=== PATIENT | female | born 1945 | race African-American/Black ===

== ENCOUNTER → 2016-03-11 13:10 | Outpatient (CLI) | payer MEDICARE ==
[2016-02-03 18:19] VITALS: BMI 25.5
[~2016-03-11 13:10] MED LIST: AMOX TR-K CLV 21 TAB PO; BUMEX2 MG PO; CARAFATE1 G PO; CORDARONE200 MG PO; COREG 3.1253.125 MG PO; COUMADIN2 MG PO; FERROUS SULFAT325 MG PO; FUROSEMIDE40 MG PO; K-DUR20 MEQ PO; LASIX20 MG PO; METOLAZONE5 MG PO; POTASSIUM CHLO20 MEQ; PROTONIX40 MG PO; SENSIPAR30 MG PO; XALATAN 0.0052.5 ML LEFT EYE; ZOCOR20 MG PO; ZOFRAN4 MG PO
== END | disposition home or self-care (01) ==
LOC: D.RT 13:10
DX: I48.2 Chronic atrial fibrillation (principal); Z79.899 Other long term (current) drug therapy; Z51.81 Encounter for therapeutic drug level monitoring